=== PATIENT | female | born 1945 | race Caucasian/White ===

== ENCOUNTER → 2022-01-16 | Day surgery (SDC) | payer OTHER ==
[~2022-01-16] VITALS: Ht 154.9 cm; Wt 49.9 kg
[~2022-01-16] MED LIST: ALIGN4 MG PO; AMLODIPINE BESYL5 MG PO; B COMPLEX1 EACH PO; CELECOXIB200 MG PO; CENTRUM SILVER1 EAC4 PO; CLARITIN10 MG PO; CLONAZEPAM0.5 MG PO; CRANBERRY200 MG PO; METOPROLOL SUCC25 MG PO; MYRBETRIQ25 MG PO; PANTOPRAZOLE SO40 MG PO; RA CALCIUM CIT PO; SERTRALINE HCL50 MG PO; SIMVASTATIN20 MG PO; VITAMIN D3125 MC2 PO
[2022-01-16 08:15] LABS: HCT 34.5 % (37.0-47.0); HGB 11.3 g/dl (12.5-16.0); MCH 30.9 pg (25.0-31.0); MCHC 32.8 g/dL (32.0-36.0); MCV 94.3 fL (78.0-100.0); MPV 12.3 fL (6.0-9.5); RBC 3.66 M/uL (4.20-5.40); RDW 13.3 % (11.5-14.0); WBC 9.8 K/uL (4.0-10.5)
[2022-01-16 08:55] LABS: ALBUMIN 3.8 g/dL (3.4-5.0); BILIRUBIN - TOTAL 0.4 mg/dL (0.2-1.0); BUN/CREAT RATIO (CALC) 26.7 RATIO; CREATININE 0.75 mg/dL (0.51-0.95); GLOBULIN (CALCULATION) 3.5 g/dL; POTASSIUM 3.9 mmol/L (3.5-5.1); TOTAL PROTEIN 7.3 g/dL (6.4-8.2)
== END | disposition home or self-care (01) ==
LOC: FAS 07:34
PROVIDERS: Surgery
DX: C90.00 Multiple myeloma not having achieved remission (principal); D64.9 Anemia, unspecified; Z79.899 Other long term (current) drug therapy; I10 Essential (primary) hypertension; E78.5 Hyperlipidemia, unspecified; K21.9 Gastro-esophageal reflux disease without esophagitis; F41.9 Anxiety disorder, unspecified
CPT/HCPCS: 36415; 80053; J1642; J2704; J7120